=== PATIENT | male | born 1980 | race Two or more races ===

== ENCOUNTER 2024-08-24 13:00 | Emergency (ER) | payer BC ==
[~2024-08-24] VITALS: Ht 162.6 cm; Wt 132.9 kg
[2024-08-24] MEDS ORDERED: OXYMETAZOLINE HCL NASAL SPRAY 30 ML BOTTLE NS ONE (14:00)
[2024-08-24] MEDS ORDERED: TRANEXAMIC ACID 1,000 MG/10 ML VIAL ONE (14:01)
[2024-08-24] MEDS: TRANEXAMIC ACID 1,000 MG/10 ML VIAL NS ONE (14:08)
[2024-08-24] MEDS: OXYMETAZOLINE HCL NASAL SPRAY 30 ML BOTTLE NS ONE (14:08)
[2024-08-24] MEDS ORDERED: FLUN25SP BNOSTRILS (14:24)
[2024-08-24] MEDS ORDERED: OXYM15MI4 NS (14:24)
[2024-08-24 14:42] VITALS: BP 157/91; TEMP 98.5; O2SAT 99
== END 2024-08-24 14:43 | disposition home or self-care (01) ==
LOC: ER 13:08
DX: R04.0 Epistaxis (principal); Z79.899 Other long term (current) drug therapy

== ENCOUNTER 2025-02-28 14:40 | Emergency (ER) | payer BC ==
[~2025-02-28] VITALS: Ht 157.5 cm; Wt 131.1 kg
[~2025-02-28 14:40] MED LIST: FLUN25SP BNOSTRILS; OXYM15MI4 NS
[2025-02-28] MEDS ORDERED: LIDO30AD10 TP (16:36)
[2025-02-28] MEDS ORDERED: IBUP-1953 PO (16:36)
[2025-02-28] MEDS ORDERED: IBUPROFEN 600 MG TABLET ONE (16:45)
[2025-02-28] MEDS: IBUPROFEN 600 MG TABLET PO ONE (16:49)
[2025-02-28 16:51] VITALS: BP 149/95; TEMP 98.5; O2SAT 98
== END 2025-02-28 16:52 | disposition home or self-care (01) ==
LOC: ER 14:42
DX: S86.912A Strain of unspecified muscle(s) and tendon(s) at lower leg level, left leg, initial encounter (principal); X58.XXXA Exposure to other specified factors, initial encounter; Y93.89 Activity, other specified; Y92.89 Other specified places as the place of occurrence of the external cause; Y99.8 Other external cause status
CPT/HCPCS: 93971-TC